=== PATIENT | male | born 1995 | race Two or more races ===

== ENCOUNTER 2025-06-09 13:05 | Emergency (ER) | payer MEDICAID, OTHER ==
[~2025-06-09] VITALS: Ht 170.2 cm; Wt 80.0 kg
[2025-06-09 13:13] VITALS: BP 119/79; PULSE 70; RESP 18; TEMP 98.2; O2SAT 99
[2025-06-09] MEDS: LIDOCAINE 5% TRANSDERMAL PATCH TD ONE (14:04)
[2025-06-09] MEDS: KETOROLAC TROMETHAMINE 30 MG/ML VIAL IM ONE (14:06)
[2025-06-09] MEDS ORDERED: IBUP-1492 PO (15:08)
[2025-06-09] MEDS ORDERED: METH-659 PO (15:08)
== END 2025-06-09 15:18 | disposition home or self-care (01) ==
LOC: EMS 13:08
DX: S39.012A Strain of muscle, fascia and tendon of lower back, initial encounter (principal); X58.XXXA Exposure to other specified factors, initial encounter; Y93.89 Activity, other specified; Y92.89 Other specified places as the place of occurrence of the external cause; Y99.8 Other external cause status
CPT/HCPCS: 99283; 96372; J1885